=== PATIENT | female | born 1965 | race Caucasian/White ===

== ENCOUNTER 2019-10-31 22:28 | Emergency (ER) | payer MEDICAID ==
[~2019-10-31] VITALS: Ht 165.1 cm; Wt 64.9 kg
[2019-10-31 22:50] VITALS: BP 121/73
[2019-10-31 23:23] LABS: Basophils # (auto) 0.1 uL; Basophils % (auto) 1.2 % (0.0-2.0); Eosinophils # (auto) 0.1 uL; Eosinophils % (auto) 0.8 % (0.0-7.0); Hematocrit 42.3 % (36.0-46.0); Hemoglobin 14.7 g/dL (12.2-16.2); Lymphocytes # (auto) 3.9 uL; Mean Corpuscular Hemoglobin 30.3 pg (28.0-32.0); Mean Corpuscular Hgb Conc. 34.7 g/dL (32.0-36.0); Mean Corpuscular Volume 87.5 fL (80.0-100.0); Monocytes # (auto) 0.7 uL; Monocytes % (auto) 6.5 % (0.0-12.0); Neutrophils # (auto) 6.6 uL; Neutrophils % (auto) 57.5 % (37.0-80.0); Nucleated Red Blood Cells % 0.1 %; Platelet Count (auto) 292 10^3/uL (140-450); Red Blood Cells 4.83 10^6/uL (4.0-5.20); Red Cell Distribution Width 12.6 % (11.8-14.3); White Blood Cell 11.4 10^3/uL (4.4-10.8)
[2019-10-31 23:41] LABS: Albumin 3.7 g/dL (3.4-5.0); Anion Gap 6 (5-15); Blood Urea Nitrogen 10 mg/dL (7-18); Calcium 8.6 mg/dL (8.5-10.1); Carbon Dioxide 26 mmol/L (21-32); Chloride 109 mmol/L (98-107); Glucose 144 mg/dL (74-106); Magnesium 2.3 mg/dL (1.6-2.6); Potassium 3.4 mmol/L (3.5-5.1); Sodium 141 mmol/L (136-145)
[2019-10-31 23:43] LABS: INR 0.96 (0.9-1.15); Partial Thromboplastin Time 23.7 sec (23.64-32.05)
[2019-10-31 23:46] LABS: Alanine Aminotransferase 25 U/L (13-56); Alkaline Phosphatase 71 U/L (45-117); Aspartate Aminotransferase 14 U/L (15-37); BUN/Creatinine Ratio 13.5; Bilirubin, Total 0.3 mg/dL (0.2-1.0); GFR African American 105 mL/min; GFR Non-African American 87 mL/min
[2019-11-01] MEDS ORDERED: cefTRIAXone SOD 1,000 MG VL IM ONE (04:15)
== END 2019-11-01 04:23 | disposition home or self-care (01) ==
LOC: ER 22:33
DX: J45.901 Unspecified asthma with (acute) exacerbation (principal); J01.00 Acute maxillary sinusitis, unspecified
CPT/HCPCS: 36415; 71046; 80053; 83735; 83880; 84484; 85025; 85379; 85610; 85730; 93005; 96372; 99285; J0696

== ENCOUNTER 2020-06-23 15:10 | Emergency (ER) | payer MEDICAID ==
[~2020-06-23] VITALS: Ht 165.1 cm; Wt 64.9 kg
[2020-06-23 16:20] LABS: Basophils # (auto) 0.1 10 ^3/uL (0-0.2); Basophils % (auto) 0.8 % (0.0-2.0); Eosinophils # (auto) 0.1 10 ^3/uL (0-0.8); Eosinophils % (auto) 1.6 % (0.0-7.0); Hematocrit 42.8 % (36.0-46.0); Hemoglobin 14.6 g/dL (12.2-16.2); Lymphocytes # (auto) 2.4 10 ^3/uL (0.4-5.4); Lymphocytes % (auto) 30.4 % (10.0-50.0); Mean Corpuscular Hgb Conc. 34.2 g/dL (32.0-36.0); Mean Corpuscular Volume 87.6 fL (80.0-100.0); Monocytes # (auto) 0.4 10 ^3/uL (0-1.3); Monocytes % (auto) 5.3 % (0.0-12.0); Neutrophils # (auto) 4.9 10 ^3/uL (1.6-8.6); Neutrophils % (auto) 61.9 % (37.0-80.0); Nucleated Red Blood Cells % 0.1 %; Platelet Count (auto) 304 10^3/uL (140-450); Red Blood Cells 4.89 10^6/uL (4.0-5.20); Red Cell Distribution Width 12.7 % (11.8-14.3)
[2020-06-23 16:31] LABS: Anion Gap 5 (5-15); Blood Urea Nitrogen 11 mg/dL (7-18); Calcium 9.2 mg/dL (8.5-10.1); Carbon Dioxide 26 mmol/L (21-32); Chloride 108 mmol/L (98-107); Glucose 107 mg/dL (74-106); Potassium 3.6 mmol/L (3.5-5.1); Sodium 139 mmol/L (136-145)
[2020-06-23 16:31] LABS: Urine Bacteria NONE SEEN /hpf (None Seen); Urine Blood Negative /uL (Negative); Urine Mucus FEW (None Seen); Urine Specific Gravity 1.022 (1.001-1.035); Urine WBC 3 /hpf (0 - 5)
[2020-06-23 16:33] LABS: Albumin 3.8 g/dL (3.4-5.0); BUN/Creatinine Ratio 15.3; GFR African American 108 mL/min; GFR Non-African American 89 mL/min
[2020-06-23 16:36] LABS: Alanine Aminotransferase 22 U/L (13-56); Alkaline Phosphatase 85 U/L (45-117); Aspartate Aminotransferase 17 U/L (15-37); Bilirubin, Total 0.5 mg/dL (0.2-1.0); Total Protein 7.2 g/dL (6.4-8.2)
[2020-06-23] MEDS: ASPirin 81 mg TAB PO ONE ×2 (17:19→18:55)
[2020-06-23 18:49] VITALS: BP 116/67
== END 2020-06-23 17:37 | disposition home or self-care (01) ==
LOC: ER 15:10
DX: R07.89 Other chest pain (principal); N39.0 Urinary tract infection, site not specified; F41.9 Anxiety disorder, unspecified; J44.9 Chronic obstructive pulmonary disease, unspecified
CPT/HCPCS: 36415; 71046; 80053; 81001; 84484; 85025; 93005

== ENCOUNTER 2020-07-07 18:15 | Emergency (ER) | payer MEDICAID ==
[~2020-07-07] VITALS: Ht 165.1 cm; Wt 64.4 kg
[2020-07-07 19:52] LABS: Basophils # (auto) 0 10 ^3/uL (0-0.2); Basophils % (auto) 0.3 % (0.0-2.0); Eosinophils # (auto) 0.2 10 ^3/uL (0-0.8); Eosinophils % (auto) 1.9 % (0.0-7.0); Hematocrit 41.7 % (36.0-46.0); Hemoglobin 14.3 g/dL (12.2-16.2); Lymphocytes % (auto) 8.3 % (10.0-50.0); Mean Corpuscular Hemoglobin 29.7 pg (28.0-32.0); Mean Corpuscular Hgb Conc. 34.2 g/dL (32.0-36.0); Mean Corpuscular Volume 86.8 fL (80.0-100.0); Monocytes # (auto) 0.4 10 ^3/uL (0-1.3); Monocytes % (auto) 3.6 % (0.0-12.0); Neutrophils # (auto) 10.2 10 ^3/uL (1.6-8.6); Neutrophils % (auto) 85.9 % (37.0-80.0); Platelet Count (auto) 261 10^3/uL (140-450); Red Cell Distribution Width 12.5 % (11.8-14.3); White Blood Cell 11.9 10^3/uL (4.4-10.8)
[2020-07-07 20:19] LABS: Albumin 3.8 g/dL (3.4-5.0); BUN/Creatinine Ratio 11.4; Calcium 9.1 mg/dL (8.5-10.1); Potassium 3.4 mmol/L (3.5-5.1)
[2020-07-07 20:22] LABS: Bilirubin, Total 0.8 mg/dL (0.2-1.0); Total Protein 7.2 g/dL (6.4-8.2)
[2020-07-07 23:10] VITALS: BP 102/54
== END 2020-07-08 03:17 | disposition home or self-care (01) ==
LOC: ER 18:15
DX: R07.89 Other chest pain (principal); J44.9 Chronic obstructive pulmonary disease, unspecified; E78.5 Hyperlipidemia, unspecified; Z20.828 Contact with and (suspected) exposure to other viral communicable diseases
CPT/HCPCS: 36415; 71045; 80053; 83690; 85025; 87426

== ENCOUNTER 2020-12-31 13:29 | Inpatient (IN) | payer MEDICAID ==
[~2020-12-31] VITALS: Ht 165.1 cm; Wt 70.1 kg
[2020-12-31] MEDS ORDERED: MECLIZINE HCL 25 MG TAB PO ONE (13:45)
[2020-12-31 14:24] LABS: Basophils # (auto) 0.1 10 ^3/uL (0-0.2); Eosinophils # (auto) 0.2 10 ^3/uL (0-0.8); Eosinophils % (auto) 2.3 % (0.0-7.0); Hematocrit 41.8 % (36.0-46.0); Hemoglobin 14.3 g/dL (12.2-16.2); Lymphocytes % (auto) 41.6 % (10.0-50.0); Mean Corpuscular Hgb Conc. 34.2 g/dL (32.0-36.0); Mean Corpuscular Volume 87.8 fL (80.0-100.0); Monocytes # (auto) 0.4 10 ^3/uL (0-1.3); Monocytes % (auto) 5.8 % (0.0-12.0); Neutrophils # (auto) 3.5 10 ^3/uL (1.6-8.6); Neutrophils % (auto) 49.3 % (37.0-80.0); Nucleated Red Blood Cells % 0.3 %; Platelet Count (auto) 304 10^3/uL (140-450); Red Blood Cells 4.76 10^6/uL (4.0-5.20); Red Cell Distribution Width 12.9 % (11.8-14.3); White Blood Cell 7.1 10^3/uL (4.4-10.8)
[2020-12-31 14:47] LABS: Albumin 3.9 g/dL (3.4-5.0); Anion Gap 10 (5-15); Blood Urea Nitrogen 8 mg/dL (7-18); Carbon Dioxide 22 mmol/L (21-32); Chloride 108 mmol/L (98-107); Glucose 105 mg/dL (74-106); Magnesium 2.4 mg/dL (1.6-2.6); Potassium 3.7 mmol/L (3.5-5.1); Sodium 140 mmol/L (136-145)
[2020-12-31 14:53] LABS: Alanine Aminotransferase 21 U/L (13-56); Alkaline Phosphatase 78 U/L (45-117); Aspartate Aminotransferase 18 U/L (15-37); Bilirubin, Total 0.8 mg/dL (0.2-1.0); GFR African American 142 mL/min; GFR Non-African American 117 mL/min
[2020-12-31] MEDS ORDERED: ASPirin-EC 81 mg tab PO ONE (16:15)
[2020-12-31 16:54] LABS: Partial Thromboplastin Time 25.6 sec (23.0-31.2)
[2020-12-31] MEDS ORDERED: TEMAZEPAM 15 MG CAP PO PRN (23:15)
[2020-12-31] MEDS ORDERED: DOCUSATE SOD 100 MG CAP PO PRN (23:15)
[2020-12-31] MEDS ORDERED: MECLIZINE HCL 25 MG TAB PO PRN (23:15)
[2020-12-31] MEDS ORDERED: MORPHINE SULF INJ 2 MG/ML SYRINGE 1ML IV PRN ×2 (23:15)
[2020-12-31] MEDS ORDERED: NITROGLYCERIN 0.4 MG SL TAB SL PRN (23:15)
[2020-12-31] MEDS ORDERED: ONDANSETRON HCL 4 MG/2 ML VIAL IV PRN (23:15)
[2021-01-01 01:52] VITALS: BP 126/68
[2021-01-01 05:05] VITALS: BP 126/68
[2021-01-01 05:39] LABS: Basophils # (auto) 0.1 10 ^3/uL (0-0.2); Eosinophils # (auto) 0.2 10 ^3/uL (0-0.8); Hematocrit 38.7 % (36.0-46.0); Hemoglobin 13.7 g/dL (12.2-16.2); Lymphocytes # (auto) 2.8 10 ^3/uL (0.4-5.4); Lymphocytes % (auto) 48.8 % (10.0-50.0); Mean Corpuscular Hgb Conc. 35.3 g/dL (32.0-36.0); Mean Corpuscular Volume 87.8 fL (80.0-100.0); Monocytes # (auto) 0.4 10 ^3/uL (0-1.3); Monocytes % (auto) 7.1 % (0.0-12.0); Neutrophils # (auto) 2.3 10 ^3/uL (1.6-8.6); Neutrophils % (auto) 39.1 % (37.0-80.0); Nucleated Red Blood Cells % 0.1 %; Platelet Count (auto) 255 10^3/uL (140-450); Red Cell Distribution Width 13.2 % (11.8-14.3); White Blood Cell 5.8 10^3/uL (4.4-10.8)
[2021-01-01 06:01] LABS: Albumin 3.5 g/dL (3.4-5.0); Anion Gap 9 (5-15); Blood Urea Nitrogen 14 mg/dL (7-18); Calcium 8.7 mg/dL (8.5-10.1); Carbon Dioxide 23 mmol/L (21-32); Chloride 107 mmol/L (98-107); Glucose 113 mg/dL (74-106); Potassium 3.6 mmol/L (3.5-5.1); Sodium 139 mmol/L (136-145)
[2021-01-01 06:03] LABS: Alanine Aminotransferase 19 U/L (13-56); Aspartate Aminotransferase 15 U/L (15-37); BUN/Creatinine Ratio 26.9; GFR African American 157 mL/min; GFR Non-African American 130 mL/min
[2021-01-01 06:09] LABS: Alkaline Phosphatase 71 U/L (45-117); Bilirubin, Total 0.8 mg/dL (0.2-1.0); Total Protein 6.5 g/dL (6.4-8.2)
[2021-01-01] MEDS: SODIUM CHLOR 0.9% PF (SALINE LOCK) 10ML VIAL/SYR IV SCH ×3 (06:26→21:35)
[2021-01-01] MEDS: LEVOTHYROXINE SODIUM 88 MCG TAB PO SCH (06:26)
[2021-01-01] MEDS: ACETAMINOPHEN 325 MG TAB PO PRN ×2 (06:31→19:56)
[2021-01-01 09:00] VITALS: BP 125/77
[2021-01-01] MEDS: MULTIPLE VITAMIN TAB PO SCH (09:00)
[2021-01-01] MEDS: ASCORBIC ACID 500 MG TAB PO SCH ×2 (09:00→21:32)
[2021-01-01] MEDS: ASPirin 81 mg TAB PO SCH (09:00)
[2021-01-01] MEDS: ENOXAPARIN SOD 40 MG/0.4 ML SYRINGE SC SCH (09:00)
[2021-01-01] MEDS: ZINC SULFATE 220mg CAP or TAB PO SCH (09:00)
[2021-01-01] MEDS: FAMOTIDINE 20 MG TAB PO SCH ×2 (09:00→21:32)
[2021-01-01 13:00] VITALS: BP 136/76
[2021-01-01 17:00] VITALS: BP 131/85
[2021-01-01] MEDS: ATORVASTATIN 20 MG TAB PO SCH (21:32)
[2021-01-01 22:00] VITALS: BP 131/77
[2021-01-02 05:00] VITALS: BP 111/63
[2021-01-02] MEDS: SODIUM CHLOR 0.9% PF (SALINE LOCK) 10ML VIAL/SYR IV SCH ×3 (06:21→22:25)
[2021-01-02] MEDS: LEVOTHYROXINE SODIUM 88 MCG TAB PO SCH (06:22)
[2021-01-02 06:43] LABS: Basophils # (auto) 0.1 10 ^3/uL (0-0.2); Basophils % (auto) 1.6 % (0.0-2.0); Eosinophils # (auto) 0.2 10 ^3/uL (0-0.8); Eosinophils % (auto) 3.9 % (0.0-7.0); Hematocrit 39.8 % (36.0-46.0); Hemoglobin 14.1 g/dL (12.2-16.2); Lymphocytes # (auto) 2.4 10 ^3/uL (0.4-5.4); Lymphocytes % (auto) 44.5 % (10.0-50.0); Mean Corpuscular Hemoglobin 31.2 pg (28.0-32.0); Mean Corpuscular Hgb Conc. 35.5 g/dL (32.0-36.0); Mean Corpuscular Volume 87.7 fL (80.0-100.0); Monocytes # (auto) 0.4 10 ^3/uL (0-1.3); Neutrophils # (auto) 2.3 10 ^3/uL (1.6-8.6); Nucleated Red Blood Cells % 0.2 %; Platelet Count (auto) 270 10^3/uL (140-450); Red Blood Cells 4.53 10^6/uL (4.0-5.20); White Blood Cell 5.3 10^3/uL (4.4-10.8)
[2021-01-02 07:15] LABS: Anion Gap 7 (5-15); BUN/Creatinine Ratio 24.6; Blood Urea Nitrogen 14 mg/dL (7-18); Calcium 8.8 mg/dL (8.5-10.1); Carbon Dioxide 23 mmol/L (21-32); Chloride 109 mmol/L (98-107); GFR African American 142 mL/min; GFR Non-African American 117 mL/min; Glucose 136 mg/dL (74-106); Potassium 3.7 mmol/L (3.5-5.1); Sodium 139 mmol/L (136-145)
[2021-01-02 08:00] VITALS: BP 110/73
[2021-01-02] MEDS: ENOXAPARIN SOD 40 MG/0.4 ML SYRINGE SC SCH (10:00)
[2021-01-02 12:00] VITALS: BP 125/58
[2021-01-02] MEDS: MULTIPLE VITAMIN TAB PO SCH (12:35)
[2021-01-02] MEDS: ASPirin 81 mg TAB PO SCH (12:35)
[2021-01-02] MEDS: FAMOTIDINE 20 MG TAB PO SCH ×2 (12:35→22:07)
[2021-01-02] MEDS: ASCORBIC ACID 500 MG TAB PO SCH ×2 (12:35→22:07)
[2021-01-02] MEDS: ZINC SULFATE 220mg CAP or TAB PO SCH (12:48)
[2021-01-02 16:00] VITALS: BP 121/71
[2021-01-02 22:00] VITALS: BP 117/80
[2021-01-02] MEDS: ATORVASTATIN 20 MG TAB PO SCH (22:07)
[2021-01-02] MEDS: ACETAMINOPHEN 325 MG TAB PO PRN (23:07)
[2021-01-03 05:00] VITALS: BP 111/63
[2021-01-03] MEDS: LEVOTHYROXINE SODIUM 88 MCG TAB PO SCH (06:19)
[2021-01-03] MEDS: SODIUM CHLOR 0.9% PF (SALINE LOCK) 10ML VIAL/SYR IV SCH ×3 (06:19→22:00)
[2021-01-03 07:20] LABS: Basophils # (auto) 0.1 10 ^3/uL (0-0.2); Basophils % (auto) 1.2 % (0.0-2.0); Eosinophils # (auto) 0.3 10 ^3/uL (0-0.8); Eosinophils % (auto) 3.7 % (0.0-7.0); Hematocrit 40.2 % (36.0-46.0); Hemoglobin 14.6 g/dL (12.2-16.2); Lymphocytes # (auto) 2.9 10 ^3/uL (0.4-5.4); Lymphocytes % (auto) 41.3 % (10.0-50.0); Mean Corpuscular Hemoglobin 31.8 pg (28.0-32.0); Mean Corpuscular Hgb Conc. 36.2 g/dL (32.0-36.0); Mean Corpuscular Volume 87.7 fL (80.0-100.0); Monocytes # (auto) 0.5 10 ^3/uL (0-1.3); Monocytes % (auto) 7.2 % (0.0-12.0); Neutrophils # (auto) 3.3 10 ^3/uL (1.6-8.6); Neutrophils % (auto) 46.6 % (37.0-80.0); Platelet Count (auto) 270 10^3/uL (140-450); Red Blood Cells 4.58 10^6/uL (4.0-5.20); Red Cell Distribution Width 12.7 % (11.8-14.3); White Blood Cell 7.1 10^3/uL (4.4-10.8)
[2021-01-03 07:33] LABS: Calcium 8.6 mg/dL (8.5-10.1); Potassium 3.6 mmol/L (3.5-5.1)
[2021-01-03 07:35] LABS: BUN/Creatinine Ratio 23.5
[2021-01-03 09:06] VITALS: BP 145/80
[2021-01-03] MEDS ORDERED: ADENOSINE 60 MG in GIVE UN-DILUTED 0 ML IV STA (11:03)
[2021-01-03 11:34] VITALS: BP 140/87
[2021-01-03] MEDS: MULTIPLE VITAMIN TAB PO SCH (13:17)
[2021-01-03] MEDS: ASCORBIC ACID 500 MG TAB PO SCH ×2 (13:17→20:28)
[2021-01-03] MEDS: ZINC SULFATE 220mg CAP or TAB PO SCH (13:17)
[2021-01-03] MEDS: ASPirin 81 mg TAB PO SCH (13:17)
[2021-01-03] MEDS: ENOXAPARIN SOD 40 MG/0.4 ML SYRINGE SC SCH (13:18)
[2021-01-03] MEDS: FAMOTIDINE 20 MG TAB PO SCH ×2 (13:18→20:27)
[2021-01-03 17:24] VITALS: BP 119/76
[2021-01-03] MEDS: ATORVASTATIN 20 MG TAB PO SCH (20:27)
[2021-01-03] MEDS: ACETAMINOPHEN 325 MG TAB PO PRN (20:29)
[2021-01-03 22:00] VITALS: BP 122/65
[2021-01-04 05:00] VITALS: BP 98/57
[2021-01-04] MEDS: SODIUM CHLOR 0.9% PF (SALINE LOCK) 10ML VIAL/SYR IV SCH (05:48)
[2021-01-04] MEDS: LEVOTHYROXINE SODIUM 88 MCG TAB PO SCH (05:48)
[2021-01-04 08:00] VITALS: BP 117/55
[2021-01-04] MEDS: FAMOTIDINE 20 MG TAB PO SCH (09:20)
[2021-01-04] MEDS: ASPirin 81 mg TAB PO SCH (09:20)
[2021-01-04] MEDS: MULTIPLE VITAMIN TAB PO SCH (09:20)
[2021-01-04] MEDS: ZINC SULFATE 220mg CAP or TAB PO SCH (09:20)
[2021-01-04] MEDS: ENOXAPARIN SOD 40 MG/0.4 ML SYRINGE SC SCH (09:21)
[2021-01-04] MEDS: ACETAMINOPHEN 325 MG TAB PO PRN (09:21)
[2021-01-04] MEDS: ASCORBIC ACID 500 MG TAB PO SCH (09:21)
== END 2021-01-04 12:00 | disposition home or self-care (01) | DRG 198 ==
LOC: ER 13:29 → TELE 23:08 → TELE-WESTW 01-01 00:27
PROVIDERS: ADMIT Nurse Practitioner Family; ATTEND Family Medicine
DX: I20.0 Unstable angina (principal); E03.9 Hypothyroidism, unspecified; J44.9 Chronic obstructive pulmonary disease, unspecified; R51.9 Headache, unspecified; E78.5 Hyperlipidemia, unspecified; Z20.822 Contact with and (suspected) exposure to COVID-19; F41.9 Anxiety disorder, unspecified; Z80.9 Family history of malignant neoplasm, unspecified; Z82.49 Family history of ischemic heart disease and other diseases of the circulatory system; Z83.3 Family history of diabetes mellitus; Z88.5 Allergy status to narcotic agent
CPT/HCPCS: 36415; 70450; 71046; 78452; 80048; 80053; 83735; 84443; 84484; 85025; 85379; 85610; 85730; 87426; 93005; 93017; 93306; G0378; J0153

== ENCOUNTER 2022-03-22 17:22 | Inpatient (IN) | payer MEDICAID ==
[~2022-03-22] VITALS: Ht 165.1 cm; Wt 66.8 kg
[2022-03-22 18:52] LABS: Basophils # (auto) 0.1 10 ^3/uL (0-0.2); Basophils % (auto) 0.7 % (0.0-2.0); Eosinophils # (auto) 0.1 10 ^3/uL (0-0.8); Eosinophils % (auto) 1.8 % (0.0-7.0); Hematocrit 41.6 % (36.0-46.0); Hemoglobin 14.3 g/dL (12.2-16.2); Lymphocytes # (auto) 2.5 10 ^3/uL (0.4-5.4); Lymphocytes % (auto) 30.8 % (10.0-50.0); Mean Corpuscular Hemoglobin 29.5 pg (28.0-32.0); Mean Corpuscular Hgb Conc. 34.2 g/dL (32.0-36.0); Monocytes # (auto) 0.4 10 ^3/uL (0-1.3); Monocytes % (auto) 4.3 % (0.0-12.0); Neutrophils % (auto) 62.4 % (37.0-80.0); Nucleated Red Blood Cells % 0.1 %; Red Blood Cells 4.84 10^6/uL (4.0-5.20); Red Cell Distribution Width 13.3 % (11.8-14.3); White Blood Cell 8.1 10^3/uL (4.4-10.8)
[2022-03-22 19:08] LABS: Albumin 3.7 g/dL (3.4-5.0); Calcium 8.9 mg/dL (8.5-10.1); Magnesium 2.4 mg/dL (1.6-2.6); Potassium 3.6 mmol/L (3.5-5.1)
[2022-03-22 19:12] LABS: BUN/Creatinine Ratio 24.2; Bilirubin, Total 0.2 mg/dL (0.2-1.0)
[2022-03-22 19:47] LABS: Urine Bacteria FEW /hpf (None Seen); Urine Blood TRACE /uL (Negative); Urine Mucus FEW (None Seen); Urine WBC 77 /hpf (0 - 5)
[2022-03-23] MEDS ORDERED: DOCUSATE SOD 100 MG CAP PO PRN (03:15)
[2022-03-23] MEDS ORDERED: ONDANSETRON HCL 4 MG/2 ML VIAL IV PRN (03:15)
[2022-03-23] MEDS ORDERED: hydrALAZINE HCL 20 MG/ML VL IV PRN (03:15)
[2022-03-23] MEDS ORDERED: NITROGLYCERIN 0.4 MG SL TAB SL PRN (03:45)
[2022-03-23] MEDS: cefTRIAXone 1GM/50ML D5W 50 ML IV SCH (04:03)
[2022-03-23] MEDS: SODIUM CHLOR 0.9% PF (SALINE LOCK) 10ML VIAL/SYR IV SCH ×3 (06:00→22:23)
[2022-03-23 06:10] LABS: Basophils # (auto) 0.1 10 ^3/uL (0-0.2); Basophils % (auto) 0.8 % (0.0-2.0); Eosinophils # (auto) 0.2 10 ^3/uL (0-0.8); Eosinophils % (auto) 2.5 % (0.0-7.0); Hematocrit 38.4 % (36.0-46.0); Hemoglobin 13.5 g/dL (12.2-16.2); Lymphocytes # (auto) 2.5 10 ^3/uL (0.4-5.4); Lymphocytes % (auto) 33.7 % (10.0-50.0); Mean Corpuscular Hemoglobin 30.4 pg (28.0-32.0); Mean Corpuscular Hgb Conc. 35.2 g/dL (32.0-36.0); Mean Corpuscular Volume 86.5 fL (80.0-100.0); Monocytes # (auto) 0.4 10 ^3/uL (0-1.3); Monocytes % (auto) 4.8 % (0.0-12.0); Neutrophils # (auto) 4.3 10 ^3/uL (1.6-8.6); Neutrophils % (auto) 58.2 % (37.0-80.0); Nucleated Red Blood Cells % 0.1 %; Red Blood Cells 4.44 10^6/uL (4.0-5.20); Red Cell Distribution Width 13.3 % (11.8-14.3); White Blood Cell 7.3 10^3/uL (4.4-10.8)
[2022-03-23 06:24] LABS: Potassium 3.2 mmol/L (3.5-5.1)
[2022-03-23 06:33] LABS: Albumin 3.2 g/dL (3.4-5.0); BUN/Creatinine Ratio 26.2; Bilirubin, Total 0.3 mg/dL (0.2-1.0); Calcium 8.4 mg/dL (8.5-10.1); Total Protein 6.2 g/dL (6.4-8.2)
[2022-03-23] MEDS: LEVOTHYROXINE SODIUM 100 MCG TAB PO SCH (07:10)
[2022-03-23] MEDS: ENOXAPARIN SOD 40 MG/0.4 ML SYRINGE SC SCH (09:59)
[2022-03-23] MEDS ORDERED: BECL40AE11 INH (16:06)
[2022-03-23] MEDS ORDERED: SIMV-8 PO (16:07)
[2022-03-23] MEDS ORDERED: LEVO100T8 PO (16:07)
[2022-03-23] MEDS ORDERED: FOLI1TAB6 PO (16:07)
[2022-03-23] MEDS ORDERED: LEVA1AER INH (16:07)
[2022-03-23] MEDS ORDERED: GABA300C10 PO (16:07)
[2022-03-23] MEDS ORDERED: MELO1TAB73 PO (16:07)
[2022-03-23] MEDS ORDERED: VALA1TAB PO (20:51)
[2022-03-23 22:00] VITALS: BP 117/73
[2022-03-23] MEDS: ACETAMINOPHEN 325 MG TAB PO PRN (22:26)
[2022-03-24 05:00] VITALS: BP 106/70
[2022-03-24 05:39] LABS: Basophils # (auto) 0.1 10 ^3/uL (0-0.2); Eosinophils # (auto) 0.2 10 ^3/uL (0-0.8); Eosinophils % (auto) 3.2 % (0.0-7.0); Hematocrit 41.3 % (36.0-46.0); Hemoglobin 14.1 g/dL (12.2-16.2); Lymphocytes # (auto) 2.7 10 ^3/uL (0.4-5.4); Lymphocytes % (auto) 42.4 % (10.0-50.0); Mean Corpuscular Hemoglobin 29.1 pg (28.0-32.0); Mean Corpuscular Hgb Conc. 34.1 g/dL (32.0-36.0); Mean Corpuscular Volume 85.4 fL (80.0-100.0); Monocytes # (auto) 0.4 10 ^3/uL (0-1.3); Monocytes % (auto) 5.6 % (0.0-12.0); Neutrophils % (auto) 47.8 % (37.0-80.0); Nucleated Red Blood Cells % 0.1 %; Red Blood Cells 4.84 10^6/uL (4.0-5.20); Red Cell Distribution Width 13.4 % (11.8-14.3); White Blood Cell 6.4 10^3/uL (4.4-10.8)
[2022-03-24] MEDS: SODIUM CHLOR 0.9% PF (SALINE LOCK) 10ML VIAL/SYR IV SCH ×3 (05:49→21:29)
[2022-03-24 05:59] LABS: Potassium 3.5 mmol/L (3.5-5.1)
[2022-03-24 06:07] LABS: Albumin 3.5 g/dL (3.4-5.0); BUN/Creatinine Ratio 20.8
[2022-03-24 06:09] LABS: Bilirubin, Total 0.3 mg/dL (0.2-1.0); Total Protein 6.5 g/dL (6.4-8.2)
[2022-03-24] MEDS: LEVOTHYROXINE SODIUM 100 MCG TAB PO SCH (06:17)
[2022-03-24] MEDS: ACETAMINOPHEN 325 MG TAB PO PRN ×2 (06:17→12:35)
[2022-03-24] MEDS: cefTRIAXone 1GM/50ML D5W 50 ML IV SCH (08:11)
[2022-03-24] MEDS: ENOXAPARIN SOD 40 MG/0.4 ML SYRINGE SC SCH (08:12)
[2022-03-24 09:00] VITALS: BP 118/67
[2022-03-24 13:00] VITALS: BP 121/70
[2022-03-24] MEDS: VALACYCLOVIR HCL 500 MG TAB PO SCH (13:59)
[2022-03-24 16:37] VITALS: BP 123/69
[2022-03-24 22:00] VITALS: BP 120/69
[2022-03-25 05:00] VITALS: BP 126/62
[2022-03-25] MEDS: SODIUM CHLOR 0.9% PF (SALINE LOCK) 10ML VIAL/SYR IV SCH (06:18)
[2022-03-25] MEDS: LEVOTHYROXINE SODIUM 100 MCG TAB PO SCH (06:19)
[2022-03-25] MEDS: ACETAMINOPHEN 325 MG TAB PO PRN (06:21)
[2022-03-25 08:30] VITALS: BP 112/67
[2022-03-25] MEDS: cefTRIAXone 1GM/50ML D5W 50 ML IV SCH (08:57)
[2022-03-25] MEDS: ENOXAPARIN SOD 40 MG/0.4 ML SYRINGE SC SCH (08:57)
[2022-03-25] MEDS: VALACYCLOVIR HCL 500 MG TAB PO SCH (08:58)
[2022-03-25 12:32] VITALS: BP 112/67
[2022-03-25 13:00] VITALS: BP 116/62
== END 2022-03-25 15:05 | disposition home or self-care (01) | DRG 204 ==
LOC: ER 17:22 → TELE 03-23 03:42 → TELE-CENTR 03-23 14:55
PROVIDERS: ADMIT Nurse Practitioner Family; ATTEND Internal Medicine Pulmonary Disease
DX: R55 Syncope and collapse (principal); E03.9 Hypothyroidism, unspecified; S06.0X0A Concussion without loss of consciousness, initial encounter; N39.0 Urinary tract infection, site not specified; E78.5 Hyperlipidemia, unspecified; I10 Essential (primary) hypertension; X58.XXXA Exposure to other specified factors, initial encounter; Z20.822 Contact with and (suspected) exposure to COVID-19; J44.9 Chronic obstructive pulmonary disease, unspecified; Z80.9 Family history of malignant neoplasm, unspecified; Z82.49 Family history of ischemic heart disease and other diseases of the circulatory system; Z83.3 Family history of diabetes mellitus; Y93.89 Activity, other specified; Y92.89 Other specified places as the place of occurrence of the external cause; Y99.8 Other external cause status; Z88.5 Allergy status to narcotic agent; Z91.041 Radiographic dye allergy status
CPT/HCPCS: 36415; 70450; 71045; 80053; 81001; 83735; 84443; 84484; 85025; 87086; 93005; 93306; 93886; 96365; G0378; J0696

== ENCOUNTER 2022-05-10 17:08 | Emergency (ER) | payer MEDICAID ==
[~2022-05-10] VITALS: Ht 165.1 cm; Wt 65.4 kg
[~2022-05-10 17:08] MED LIST: BECL40AE11 INH; FOLI1TAB6 PO; GABA300C10 PO; LEVA1AER INH; LEVO100T8 PO; MELO1TAB73 PO; SIMV-8 PO; VALA1TAB PO
[2022-05-10] MEDS ORDERED: ONDANSETRON HCL 4 MG/2 ML VIAL IV ONE (19:30)
[2022-05-10] MEDS ORDERED: SODIUM CHLORIDE 0.9% 1,000 ML IV ONE (19:30)
[2022-05-10 19:31] LABS: Basophils # (auto) 0 10 ^3/uL (0-0.2); Basophils % (auto) 0.3 % (0.0-2.0); Eosinophils # (auto) 0 10 ^3/uL (0-0.8); Hematocrit 39.9 % (36.0-46.0); Hemoglobin 13.5 g/dL (12.2-16.2); Lymphocytes # (auto) 0.7 10 ^3/uL (0.4-5.4); Lymphocytes % (auto) 10.3 % (10.0-50.0); Mean Corpuscular Hemoglobin 28.7 pg (28.0-32.0); Mean Corpuscular Hgb Conc. 33.8 g/dL (32.0-36.0); Mean Corpuscular Volume 84.8 fL (80.0-100.0); Monocytes # (auto) 0.6 10 ^3/uL (0-1.3); Monocytes % (auto) 9.6 % (0.0-12.0); Neutrophils # (auto) 5.3 10 ^3/uL (1.6-8.6); Neutrophils % (auto) 79.8 % (37.0-80.0); Red Cell Distribution Width 12.8 % (11.8-14.3); White Blood Cell 6.6 10^3/uL (4.4-10.8)
[2022-05-10 19:41] LABS: Albumin 3.5 g/dL (3.4-5.0); BUN/Creatinine Ratio 9.2; Potassium 3.4 mmol/L (3.5-5.1)
[2022-05-10 19:44] LABS: Bilirubin, Total 0.4 mg/dL (0.2-1.0); Total Protein 6.9 g/dL (6.4-8.2)
[2022-05-10 20:34] LABS: Lactic Acid w/Reflex 2.2 mmol/L (0.4-2.0)
[2022-05-10 21:14] LABS: Amphetamine Screen, Urine NEGATIVE (NEGATIVE); Barbiturate Scree,Urine NEGATIVE (NEGATIVE); Benzodiazephine Screen, Urine NEGATIVE (NEGATIVE); Cannabinoid Screen, Urine NEGATIVE (NEGATIVE); Cocaine Screen, Urine NEGATIVE (NEGATIVE); Opiate Scree,Urine NEGATIVE (NEGATIVE); Phencyclidine Screen, Urine NEGATIVE (NEGATIVE); Urine Bacteria FEW /hpf (None Seen); Urine Blood Negative /uL (Negative); Urine Mucus FEW (None Seen); Urine Specific Gravity 1.033 (1.001-1.035); Urine WBC 1 /hpf (0 - 5)
[2022-05-11] MEDS ORDERED: ONDA-144 PO (01:11)
[2022-05-11 04:00] VITALS: BP 135/73
== END 2022-05-11 04:50 | disposition home or self-care (01) ==
LOC: ER 17:08
DX: U07.1 COVID-19 (principal); J44.9 Chronic obstructive pulmonary disease, unspecified; E78.5 Hyperlipidemia, unspecified; Z90.89 Acquired absence of other organs
CPT/HCPCS: 36415; 71045; 74176; 80053; 80307; 81001; 83605; 83735; 84484; 85025; 87426; 96361; 96374; 99285; J2405; J7030